=== PATIENT | female | born 1990 | race Two or more races ===

== ENCOUNTER → 2023-05-19 | Emergency (ER) | payer OTHER ==
[~2023-05-19] VITALS: Ht 160 cm; Wt 91.6 kg
[~2023-05-19] MED LIST: ALBUTEROL SULFATE 3 ML/2.5 MG AMPUL.NEB IH SCH; BUDESONIDE 0.5 MG/2 ML AMPUL.NEB IH STA; GUAIFENESIN 200 MG/10 ML BLIST.PACK PO STA; PROAIR RESPICL90 MCG IH
[2023-05-19 09:13] LABS: HEMATOCRIT 40.8 % (36.0-45.00); HEMOGLOBIN 14.3 g/dL (12.0-15.00); MEAN CORPUSCULAR HEMOGLOBIN 30.6 pg (27.00-32.0); MEAN CORPUSCULAR HGB CONC 35.1 g/dl (32.0-36.0); RED BLOOD COUNT 4.69 M/uL (4.00-6.00); RED CELL DISTRIBUTION WIDTH 13.9 % (11.5-14.5)
[2023-05-19 09:58] LABS: PLATELET COUNT 270 K/uL (150-450)
== END | disposition home or self-care (01) ==
LOC: ER 06:44
PROVIDERS: Emergency Medicine
DX: Z33.1 Pregnant state, incidental (principal); J20.9 Acute bronchitis, unspecified; R05.9 Cough, unspecified; Z20.822 Contact with and (suspected) exposure to COVID-19

== ENCOUNTER 2023-11-02 10:45 | Inpatient (IN) | payer OTHER ==
[~2023-11-02] VITALS: Ht 157.5 cm; Wt 3.2 kg
[~2023-11-02 10:45] MED LIST changes: -ALBUTEROL SULFATE 3 ML/2.5 MG AMPUL.NEB IH SCH; -BUDESONIDE 0.5 MG/2 ML AMPUL.NEB IH STA; -GUAIFENESIN 200 MG/10 ML BLIST.PACK PO STA
[2023-11-08] MEDS ORDERED: PRENATAL + DHA1 EAC1 PO (06:12)
[2023-11-08 06:14] VITALS: BP 132/84
[2023-11-08] MEDS ORDERED: CEFAZOLIN SODIUM 1,000 MG VIAL IV ONE (07:45)
[2023-11-08] MEDS ORDERED: ERYTHROMYCIN BASE OPHT 1GM EACH TUBE OP ONE (07:45)
[2023-11-08] MEDS ORDERED: CITRIC ACID/SODIUM CITRATE 30 ML BLIST.PACK PO ONE (07:45)
[2023-11-08] MEDS ORDERED: OXYTOCIN 10 UNITS/ML VIAL IV ONE (07:45)
[2023-11-08] MEDS ORDERED: OXYTOCIN 1,000 ML IV SCH (09:30)
[2023-11-08] MEDS ORDERED: IBUprofen 400 MG TABLET PO PRN (09:30)
[2023-11-08] MEDS ORDERED: MEPERIDINE HCL/PF 50 MG/ML VIAL IM PRN (09:30)
[2023-11-08] MEDS ORDERED: MORPHINE SULFATE 4 MG/ML VIAL IV ONE (10:30)
[2023-11-08 12:47] VITALS: BP 117/75
[2023-11-08 16:00] VITALS: BP 120/74
[2023-11-09 00:28] VITALS: BP 111/68
[2023-11-09 04:00] VITALS: BP 115/76
[2023-11-09 08:00] VITALS: BP 99/62
[2023-11-09] MEDS ORDERED: KETOROLAC TROMETHAMINE 10 MG TABLET PO PRN (11:00)
[2023-11-09] MEDS ORDERED: OxyCODONE HCL/APAP UD (PERCOCET) PO PRN (11:00)
[2023-11-09 18:00] VITALS: BP 129/78
[2023-11-10 01:12] VITALS: BP 103/65
[2023-11-10 07:53] VITALS: BP 119/78
[2023-11-10] MEDS ORDERED: SIMETHICONE 125 MG CAPSULE PO SCH (16:00)
[2023-11-10 17:13] VITALS: BP 105/71
[2023-11-11 00:32] VITALS: BP 108/65
[2023-11-11 08:18] VITALS: BP 131/83
[2023-11-11 11:16] LABS: MEAN CELL VOLUME 89.7 fL (80.00-100.00); MEAN CORPUSCULAR HGB CONC 34.5 g/dl (32.0-36.0); PLATELET COUNT 290 K/uL (150-450); RED BLOOD COUNT 3.24 M/uL (4.00-6.00); RED CELL DISTRIBUTION WIDTH 14.4 % (11.5-14.5)
[2023-11-11 11:19] LABS: MEAN CORPUSCULAR HEMOGLOBIN 30.8 pg (27.00-32.0)
[2023-11-11 11:52] LABS: ALBUMIN 2.4 gm/dL (3.4-5.0); BILIRUBIN TOTAL 0.43 mg/dL (0.3-1.2); CREATININE SERUM 0.5 mg/dL (0.55-1.02); GFR 142.09; GLOBULINA 3.2 G/DL (2.4-3.5); POTASSIUM 4.32 mEq/L (3.5-5.1); TOTAL PROTEIN 5.6 gm/dL (6.4-8.2)
== END 2023-11-11 16:08 | disposition home or self-care (01) | DRG 788 ==
LOC: O/R 11-08 05:30 → OB/GYN 11-08 07:00
PROVIDERS: Obstetrics & Gynecology Gynecology; ADMIT Obstetrics & Gynecology Maternal & Fetal Medicine; ATTEND Obstetrics & Gynecology Maternal & Fetal Medicine
PROC: 0DNW0ZZ Release Peritoneum, Open Approach (ICD-10-PCS; 2023-11-08)
PROC: 4A1HXCZ Monitoring of Products of Conception, Cardiac Rate, External Approach (ICD-10-PCS; 2023-11-08)
PROC: 10D00Z1 Extraction of Products of Conception, Low, Open Approach (ICD-10-PCS; principal; 2023-11-08 07:00)
DX: O34.211 Maternal care for low transverse scar from previous cesarean delivery (principal); O99.892 Other specified diseases and conditions complicating childbirth; N73.6 Female pelvic peritoneal adhesions (postinfective); O99.824 Streptococcus B carrier state complicating childbirth; Z3A.39 39 weeks gestation of pregnancy; Z37.0 Single live birth; Z20.822 Contact with and (suspected) exposure to COVID-19